=== PATIENT | male | born 1960 | race Caucasian/White ===

== ENCOUNTER 2017-03-20 16:47 | Emergency (ER) | payer OTHER ==
[~2017-03-20] VITALS: Ht 160 cm; Wt 101.6 kg
[2017-03-20 16:50] VITALS: BP_SYST 113
[2017-03-20] MEDS ORDERED: BACITRACIN 1 GM OINT TP ONE (18:30)
[2017-03-20] MEDS ORDERED: IBUPROFEN 600 MG TABLET PO ONE (18:30)
[2017-03-20] MEDS ORDERED: LIDOCAINE/EPI 1% 1:100000 20 ML VIAL IJ ONE (18:30)
[2017-03-20] MEDS ORDERED: LIDOCAINE 4% TOPICAL 50 ML BOTTLE MM ONE (18:30)
[2017-03-20 19:12] VITALS: BP_SYST 112
== END 2017-03-20 19:12 | disposition home or self-care (01) ==
LOC: SED 16:47
DX: S81.812A Laceration without foreign body, left lower leg, initial encounter (principal); I10 Essential (primary) hypertension; W20.8XXA Other cause of strike by thrown, projected or falling object, initial encounter; Y93.G3 Activity, cooking and baking; Y92.090 Kitchen in other non-institutional residence as the place of occurrence of the external cause; Y99.8 Other external cause status
CPT/HCPCS: 99283

== ENCOUNTER 2017-03-30 11:21 | Emergency (ER) | payer OTHER ==
[~2017-03-30] VITALS: Ht 160 cm; Wt 104.3 kg
[2017-03-30 11:34] VITALS: BP_SYST 106
[2017-03-30 11:46] VITALS: BP_SYST 106
== END 2017-03-30 11:46 | disposition home or self-care (01) ==
LOC: SED 11:21
DX: S81.812D Laceration without foreign body, left lower leg, subsequent encounter (principal); I10 Essential (primary) hypertension; X58.XXXD Exposure to other specified factors, subsequent encounter; Y92.89 Other specified places as the place of occurrence of the external cause; Y99.8 Other external cause status
CPT/HCPCS: 99281